=== PATIENT | female | born 1990 | race Caucasian/White ===

== ENCOUNTER 2021-09-28 10:42 | Outpatient (CLI) | payer MEDICAID ==
[2021-09-28 19:08] LABS: SARS-CoV-2 PCR by NAA Not Detected (NotDetected)
== END 2021-09-28 10:43 | disposition home or self-care (01) ==
LOC: CSHLAB 10:42
PROVIDERS: ATTEND Student in an Organized Health Care Education/Training Program
DX: Z20.822 Contact with and (suspected) exposure to COVID-19 (principal)
CPT/HCPCS: U0003; U0005

== ENCOUNTER 2021-10-02 14:22 | Inpatient (IN) | payer MEDICAID, OTHER ==
[2021-10-03] MEDS ORDERED: Bupivacaine/Epinephrine 0.25% 30 ML VIAL ONE (06:00)
[2021-10-03 07:08] VITALS: BMI 26.1
[2021-10-03] MEDS ORDERED: Promethazine HCl 25 MG/ML VIAL IM PRN ×3 (07:16→16:13)
[2021-10-03] MEDS ORDERED: Butorphanol Tartrate 1 MG/ML VIAL SLOW IVP PRN (07:16)
[2021-10-03] MEDS ORDERED: Diphenoxylate HCl/Atropine Tablet PO PRN (07:16)
[2021-10-03] MEDS ORDERED: Ibuprofen 800 MG TAB PO PRN (07:16)
[2021-10-03] MEDS ORDERED: hydrALAZINE 20 MG/ML VIAL SLOW IVP PRN ×2 (07:16→16:13)
[2021-10-03] MEDS ORDERED: Methylergonovine 0.2 MG/ML VIAL IM PRN (07:16)
[2021-10-03] MEDS ORDERED: Ondansetron PF 4 MG/2 ML Vial IVP PRN ×3 (07:16→16:13)
[2021-10-03] MEDS ORDERED: HYDROcodone/Acetaminophen 5/325 mg Tablet PO PRN ×3 (07:16→16:13)
[2021-10-03] MEDS ORDERED: Lidocaine 1% (PF) 30 ML VIAL SC PRN (07:16)
[2021-10-03] MEDS ORDERED: Acetaminophen 500 MG TAB PO PRN (07:16)
[2021-10-03] MEDS ORDERED: Carboprost 250 MCG/ML AMP IM PRN (07:16)
[2021-10-03] MEDS ORDERED: Misoprostol 200 MCG TAB PR PRN (07:16)
[2021-10-03] MEDS ORDERED: NS w/ Oxytocin 30 units 500 ML ONE (07:26)
[2021-10-03] MEDS ORDERED: NS w/ Oxytocin 30 units 500 ML IV SCH ×2 (07:30)
[2021-10-03] MEDS ORDERED: Lactated Ringer's 1,000 ML IV SCH (07:30)
[2021-10-03 07:58] LABS: Hemoglobin 10.8 g/dL (12.0-15.5); Mean Corpuscular HGB CONC 32.9 g/dL (32.0-36.0); Mean Corpuscular Hemoglobin 28.4 pg (27.0-33.0); Mean Corpuscular Volume 86.3 fl (81.6-98.3); Mean Platelet Volume 12.2 fl (7.4-10.4); Platelet Count 173 10x3/uL (150-450); RBC Distribution Width 13.6 % (11.5-14.5); White Blood Cell (WBC) Count 11.3 10x3/uL (3.5-10.5)
[2021-10-03] MEDS ORDERED: Fentanyl 2 mcg/Bup 0.1% Cadd 100 ML ONE (08:27)
[2021-10-03] MEDS ORDERED: diphenhydrAMINE 50 MG/ML VIAL IVP PRN (09:17)
[2021-10-03] MEDS ORDERED: Moisturizing Cream (Eucerin) 113 GM JAR TOP PRN (09:17)
[2021-10-03] MEDS ORDERED: Naloxone HCl 0.4 mg/ml Vial IVP PRN ×2 (09:17)
[2021-10-03] MEDS ORDERED: Acetaminophen 325 MG TAB PO PRN (09:17)
[2021-10-03] MEDS ORDERED: Lactated Ringer's 500 ML IV PRN (09:17)
[2021-10-03] MEDS ORDERED: ePHEDrine Sulfate 50 MG/10 ML VIAL SLOW IVP PRN (09:17)
[2021-10-03 09:22] LABS: Hep B Surf Ag Non-Reactive S/CO (NonReactive); Syphilis Antibody Nonreactive (Nonreactive); Syphilis Antibody Index 0.06 S/CO (<1.00 Non-Reactive)
[2021-10-03] MEDS ORDERED: Fentanyl 2 mcg/Bupivacaine 0.1% Cassette 100 ML EPIDURAL SCH (09:30)
[2021-10-03] MEDS ORDERED: Communication Order-Pharmacy FS SCH (09:30)
[2021-10-03 09:36] LABS: HBSAg Index 0.14 S/CO (0-0.99)
[2021-10-03] MEDS ORDERED: Bisacodyl 10 MG SUPP PR PRN (16:13)
[2021-10-03] MEDS ORDERED: Lanolin Ointment 7 GM TUBE TOP PRN (16:13)
[2021-10-03] MEDS ORDERED: Preparation H Ointment 28 GM TUBE PR PRN (16:13)
[2021-10-03] MEDS ORDERED: diphenhydrAMINE 25 MG CAP PO PRN (16:13)
[2021-10-03] MEDS ORDERED: Milk Of Magnesia 30 ML UDCUP PO PRN (16:13)
[2021-10-03] MEDS ORDERED: Benzocaine-Menthol 82.5 ML CAN TOP PRN (16:13)
[2021-10-03] MEDS: Ferrous Sulfate 325 MG TAB PO SCH (17:51)
[2021-10-03] MEDS: Ibuprofen 800 MG TAB PO SCH (21:03)
[2021-10-03] MEDS: Docusate 100 MG CAP PO SCH (21:03)
[2021-10-04] MEDS: Ibuprofen 800 MG TAB PO SCH ×2 (05:05→14:49)
[2021-10-04] MEDS: Ferrous Sulfate 325 MG TAB PO SCH (08:47)
[2021-10-04] MEDS: Docusate 100 MG CAP PO SCH (08:49)
[2021-10-04] MEDS ORDERED: Prenatal Vitamin 1 TAB PO SCH (09:00)
[2021-10-04 11:29] VITALS: BP 119/68; TEMP 98.5
[2021-10-04] MEDS ORDERED: Boostrix 0.5 ML (Tdap) VIAL IM ONE (16:13)
== END 2021-10-04 17:40 | disposition home or self-care (01) | DRG 807 ==
LOC: CSHLD 10-03 06:17 → CSHPP 10-03 17:16
PROVIDERS: ADMIT Student in an Organized Health Care Education/Training Program; ATTEND Student in an Organized Health Care Education/Training Program
PROC: 10E0XZZ Delivery of Products of Conception, External Approach (ICD-10-PCS; principal; 2021-10-03)
DX: O80 Encounter for full-term uncomplicated delivery (principal); Z37.0 Single live birth; Z3A.39 39 weeks gestation of pregnancy; Z91.010 Allergy to peanuts; Z91.014 Allergy to mammalian meats
CPT/HCPCS: 36415; 51702; 85027; 86780; 86850; 86900; 86901; 87340; J2590

== ENCOUNTER 2021-10-06 16:29 | Emergency (ER) | payer OTHER | END 2021-10-06 18:00 | disposition home or self-care (01) | LOC: CSHERS 16:29 | DX: L50.9 Urticaria, unspecified (principal) | CPT/HCPCS: 99282 ==